=== PATIENT | male | born 1990 | race Hispanic/Latino ===

== ENCOUNTER 2024-03-21 11:45 | Emergency (ER) | payer OTHER, SELFPAY ==
[2024-03-21 11:59] VITALS: BP 100/43; PULSE 55; RESP 16; TEMP 36.6; O2SAT 99
--- NOTE | 2024-03-21 12:02 | DI.RAD.S_ITS ---
PROCEDURE: XR FINGER LT MIN 2V INDICATIONS: laceration TECHNIQUE: AP hand, 2 views of the 3rd finger(s) acquired. COMPARISON: None. FINDINGS: Bones: No fractures or dislocations. No suspicious bony lesions. Soft tissues: No suspicious soft tissue calcifications. Distal aspect left 3rd finger laceration. No radiopaque foreign body or soft tissue gas. IMPRESSION: No acute bony abnormality. Dictated by: Jay Car M.D. on 03/21/2024 at 12:44 Approved by: Jay Car M.D. on 03/21/2024 at 12:46
--- NOTE | 2024-03-21 12:02 | PC.NURSE ---
Patient clammy, pale and dizzy in triage. Pressure dressing applied. Cool washcloth applied and two sweatshirts removed.
--- NOTE | 2024-03-21 12:03 | PC.NURSE ---
Pt states he cut his finger with saw while he was at work.
[2024-03-21] MEDS: LIDOCAINE 1% 20 ML SUBCUT (12:30)
[2024-03-21] MEDS: HYDROCODONE/ACET 5/325 TABLET 1 TAB PO (12:30)
[2024-03-21] MEDS: KETOROLAC 30 MG/ML VIAL IM (12:31)
[2024-03-21] MEDS: TET,DIPH,PERTUSS(ACELL),VAC/PF 0.5 ML SYRINGE IM (12:31)
--- NOTE | 2024-03-21 12:50 | ED.WOUNDLAC ---
HPI - Wound/Laceration <Whit Grove PA-C - Last Filed: 03/21/24 20:05> General Chief Complaint: Wound/Laceration Stated Complaint: open wound finger L hand/ bleeding, work injury Time Seen by Provider: 03/21/24 12:06 Source: patient Mode of arrival: Ambulatory History of Present Illness HPI narrative: 33-year-old male presents with concern for skill saw injury to his left middle finger sustained at work today doing work for his employer [employer]. Patient was using a skill saw to cut new lumbar for a project and accidentally cut into the underside of his middle finger right at the fold of the last joint. Patient states he is able to move his finger normally but is afraid to do so because of bleeding and pain. He has never injured this finger previously. He feels he has normal sensation at the end of the finger. He denies any other injuries complaints or concerns. He and his co-worker think that the blade was a 1 /8 in wide blade. He states the blade was new and he is unsure when his last tetanus was. Related Data Previous Rx's Medication Instructions Recorded cephalexin 500 mg capsule 500 mg PO Q8H saw blade wound 03/21/24 prophylaxis 7 days #21 caps Allergies Allergy/AdvReac Type Severity Reaction Status Date / Time No Known Drug Allergies Allergy Verified 03/21/24 12:04 Review of Systems <Whit Grove PA-C - Last Filed: 03/21/24 20:05> Review of Systems Narrative: See HPI Patient History <Whit Grove PA-C - Last Filed: 03/21/24 20:05> Social History Smoking Status: Never smoker Smoking Status: Never smoker alcohol intake frequency: holidays/special occasions only Substance Use Type: marijuana Exam <Whit Grove PA-C - Last Filed: 03/21/24 20:05> Narrative Exam Narrative: GENERAL: [33] year old patient appears stated age. Well-developed patient, in mild distress. HEAD: Atraumatic. Normocephalic. EYES: Pupils equal round and reactive. Extraocular motions intact. No scleral icterus. No injection or drainage. ENT: Nose without bleeding, purulent drainage. Airway patent. NECK: Trachea midline. Non tender CARDIOVASCULAR: Regular rate and rhythm without murmurs, gallops, or rubs. RESPIRATORY: Clear to auscultation. Breath sounds equal bilaterally. No wheezes, rales, or rhonchi. EXTREMITIES: On the affected left middle finger directly over the D IP joint there is a lateral laceration with irregular edges and some tissue missing it is approximately 1.3 cm long beginning on the lateral aspect of the digit and traveling to the opposite side of the digit along the fold of the D IP. On examination with finger tourniquet on and washout there is no foreign body noted. Tendons are not visible, however tendon function is intact with flexion and extension at the D IP and PIP bleeding can be controlled with direct pressure. Capillary refill in the affected digit is less than 2 seconds, sensation is intact prior to numbing. Skin color of the distal digit is pink and consistent skin tone with the remainder of the fingers of the hand. No other edema or joint tenderness. NEURO: AOx3. SKIN: No rash or erythema of visible areas Initial Vital Signs Initial Vital Signs: Vital Signs Temperature 98 F 03/21/24 11:59 Pulse Rate 55 L 03/21/24 11:59 Respiratory Rate 16 03/21/24 11:59 Blood Pressure 100/43 L 03/21/24 11:59 Pulse Oximetry 99 03/21/24 11:59 Oxygen Delivery Method Room Air 03/21/24 11:59 <Anais Jarvis DO - Last Filed: 03/24/24 04:45> Initial Vital Signs Initial Vital Signs: Vital Signs Temperature 98 F 03/21/24 11:59 Pulse Rate 55 L 03/21/24 11:59 Respiratory Rate 16 03/21/24 11:59 Blood Pressure 100/43 L 03/21/24 11:59 Pulse Oximetry 99 03/21/24 11:59 Oxygen Delivery Method Room Air 03/21/24 11:59 Procedures <Whit Grove PA-C - Last Filed: 03/21/24 20:05> Laceration Repair Laceration 1: Time of procedure: 14:15 Site: hand (middle finger) Side (If applicable): left Size (cm): 1.3 Description: linear and irregular Depth: involves muscle layer (full thickness into soft tissue) Local Anesthetic: lidocaine 1% (ring block) Amount of anesthesia used (mL): 6 Pre-repair: wound explored, irrigated extensively, deep structures intact, wound margins revised and cleansed with chlorhexadine Skin layer closed with: nylon Skin layer suture size: 5-0 Number of sutures: 9 Technique: simple, interrupted Course <Whit Grove PA-C - Last Filed: 03/21/24 20:05> Orders Ordered: Discontinued Medications Hydrocodone Bitart/Acetaminophen (Hydrocodone/Acet 5/325 Tablet) 1 tab PO NOW ONE Stop: 03/21/24 12:07 Last Admin: 03/21/24 12:30 Dose: 1 tab Documented By: EMILY Diphtheria/Tetanus/Acell Pertussis (Tet,Diph,Pertuss(Acell),Vac/Pf 0.5 Ml Syringe) 0.5 ml IM .ONCE ONE Stop: 03/21/24 12:07 Last Admin: 03/21/24 12:31 Dose: 0.5 ml Documented By: EMILY Ketorolac Tromethamine (Ketorolac 30 Mg/Ml Vial) 30 mg IM NOW ONE Stop: 03/21/24 12:07 Last Admin: 03/21/24 12:31 Dose: 30 mg Documented By: EMILY Lidocaine HCl (Lidocaine 1% 20 Ml) 20 ml SUBCUT NOW ONE Stop: 03/21/24 12:07 Last Admin: 03/21/24 12:30 Dose: 20 ml Documented By: EMILY Vital Signs Vital signs: Vital Signs - 8 hr 03/21/24 11:59 03/21/24 13:17 03/21/24 15:07 Temperature 98 F 97.9 F Pulse Rate 55 L 51 L 64 Respiratory Rate 16 16 19 Blood Pressure 100/43 L 128/73 150/77 H Pulse Oximetry 99 100 99 Oxygen Delivery Method Room Air Room Air <Anais Jarvis DO - Last Filed: 03/24/24 04:45> Orders Ordered: Discontinued Medications Hydrocodone Bitart/Acetaminophen (Hydrocodone/Acet 5/325 Tablet) 1 tab PO NOW ONE Stop: 03/21/24 12:07 Last Admin: 03/21/24 12:30 Dose: 1 tab Documented By: EMILY Diphtheria/Tetanus/Acell Pertussis (Tet,Diph,Pertuss(Acell),Vac/Pf 0.5 Ml Syringe) 0.5 ml IM .ONCE ONE Stop: 03/21/24 12:07 Last Admin: 03/21/24 12:31 Dose: 0.5 ml Documented By: EMILY Ketorolac Tromethamine (Ketorolac 30 Mg/Ml Vial) 30 mg IM NOW ONE Stop: 03/21/24 12:07 Last Admin: 03/21/24 12:31 Dose: 30 mg Documented By: EMILY Lidocaine HCl (Lidocaine 1% 20 Ml) 20 ml SUBCUT NOW ONE Stop: 03/21/24 12:07 Last Admin: 03/21/24 12:30 Dose: 20 ml Documented By: EMILY Vital Signs Vital signs: Vital Signs - 8 hr 03/21/24 11:59 03/21/24 13:17 03/21/24 15:07 Temperature 98 F 97.9 F Pulse Rate 55 L 51 L 64 Respiratory Rate 16 16 19 Blood Pressure 100/43 L 128/73 150/77 H Pulse Oximetry 99 100 99 Oxygen Delivery Method Room Air Room Air MDM - Wound/Laceration <hWit Grove PA-C - Last Filed: 03/21/24 20:05> Differential Diagnosis Differential diagnosis: Likely laceration and other (Work injury, power saw accident) Medical Records Attestation: I reviewed the patient's medical records. Imaging Data Extremity x-ray #1: My Impression: Agree with Radiology interpretation Radiologist's Impression: [place] [address] XRay Report Signed Patient: Berry Covington MR#: [id number] : 1990 Acct:[id number] Age/Sex: 33 / M Date of Service: 03/21/24 Loc: ED Accession Number: [id number] Procedure: XR finger LT min 2V Ordering Provider: Whit Grove P.A-C PROCEDURE: XR FINGER LT MIN 2V INDICATIONS: laceration TECHNIQUE: AP hand, 2 views of the 3rd finger(s) acquired. COMPARISON: None. FINDINGS: Bones: No fractures or dislocations. No suspicious bony lesions. Soft tissues: No suspicious soft tissue calcifications. Distal aspect left 3rd finger laceration. No radiopaque foreign body or soft tissue gas. IMPRESSION: No acute bony abnormality. Dictated by: Jay Car M.D. on 03/21/2024 at 12:44 Approved by: Jay Car M.D. on 03/21/2024 at 12:46 [facility] Narrative Medical decision making narrative: This is a previously healthy 33-year-old male Gambian speaking who presents with concern for laceration from a power skill saw to his distal middle finger of the left hand. Patient is right-handed. Exam is concerning for a deep laceration however patient does have intact function and do not suspect tendon involvement. X-rays obtained with no bony involvement or abnormal findings. Wound is repaired as above with nylon sutures, patient is bandaged with a Surgicel dressing, single nonstick gauze and Coban. Wound was not continuing to bleed post suturing. Patient is advised to remove the dressing within 24-36 hours, keep the area clean and dry use topical antibiotic Vaseline based ointment over the wound. Work note for off of work until Tuesday as the type of work he does will be extremely difficult to complete with this particular injury. Light duty after that until he has stitches removed. Patient is advised he should follow up with primary care, consider seeing orthopedics if he has new or worsening symptoms. L and I paperwork [id number]. Return precautions provided, follow-up plan discussed, all questions answered. Discharge Plan Departure Patient Disposition: Home Clinical Impression: Contact with powered saw as cause of accidental injury, Work related injury Laceration of finger of left hand Qualifiers: Encounter type: initial encounter Finger: middle finger Damage to nail status: without damage Foreign body presence: without foreign body Qualified Code(s): S61.213A - Laceration without foreign body of left middle finger without damage to nail, initial encounter Instructions: How to Care for a Laceration After Repair Activity Restrictions/Additional Instructions: *You have been diagnosed with [laceration to your left middle finger] *What to do: *Please continue to take your regular medications as directed. [1 ] New medication prescriptions sent to your pharmacy: [cephalexin (antibiotic) ] [ ] New medication written as a paper prescription [ ] No new medications given *Please follow up with your primary care provider in 2-3 days, call for an appointment. Let them know you were seen in the Emergency Department and that we ask that you be seen in follow up. We will electronically transmit a record of today's note if your PCP is in our system. You cut your finger on a skill saw at work today and we repaired this after doing an x-ray there does not appear to be damage to the bone. You have [address] all of which need to be removed in 9-12 days' time. We placed you in a finger splint you should continue to wear this for the next 3-5 days to provide support for your finger although it is okay to flex it and extend it during the healing process. The dressing that we placed in the emergency department should stay on for 24 hours up to 36 hours after this you may use a topical antibiotic ointment over the wound and a simple Band-Aid or other dressing to keep it clean and dry. I have placed you on antibiotics because this is a very deep wound and would like to make sure that you do not get an infection. Please take all of the antibiotics as prescribed. If you feel that your function is changing or you have signs of infection or you have other concerns you should follow up with an orthopedic provider. I [place] completed [id number] during your emergency department stay. You can have your sutures removed here in the emergency department if needed but if you have a primary care or urgent care office you can go to that also works well. I provided a note for you to be off work until Tuesday next week and after that on light duty for a few days. *If you do not have a primary care provider please contact the [facility] Resource line at [phone]. They will ask some questions about your medical history and help get you set up with a doctor in the community. *Return to Emergency Department if you should have any new, worsening or concerning symptoms, such as [fever greater than 101 F, shaking chills, worsening pain, persistent vomiting or other bothersome symptoms] Prescriptions: New cephalexin 500 mg capsule 500 mg PO Q8H 7 Days Qty: 21 0RF Stand Alone Forms: Patient Portal/API, Work Release Note ED Sign-out <Anais Jarvis DO - Last Filed: 03/24/24 04:45> Cosign ED Attending Cosmaryature Attestation: I was immediately available in the department for consultation.
[2024-03-21 13:17] VITALS: BP 128/73; PULSE 51; RESP 16; O2SAT 100
[2024-03-21 15:07] VITALS: BP 150/77; PULSE 64; RESP 19; TEMP 36.6; O2SAT 99
== END 2024-03-21 15:44 | disposition home or self-care (01) ==
PROVIDERS: Emergency Provider Student in an Organized Health Care Education/Training Program
DX: S61.213A Laceration without foreign body of left middle finger without damage to nail, initial encounter (principal); W27.0XXA Contact with workbench tool, initial encounter; Y93.H3 Activity, building and construction; Y92.9 Unspecified place or not applicable; Y99.0 Civilian activity done for income or pay; Z23 Encounter for immunization
CPT/HCPCS: 12001; 29130; 73140; 90471; 96372; 99283; 90715; J1885